=== PATIENT | male | born 1965 | race Caucasian/White ===

== ENCOUNTER 2022-12-24 14:20 | Emergency (ER) | payer BC ==
[2022-12-24] MEDS ORDERED: Lidocaine 1% 5 ML VIAL INJECT ONE (14:47)
[2022-12-24] MEDS ORDERED: Bacitracin Oint 1 GM U/D Packet TOP ONE (14:47)
== END 2022-12-24 15:32 | disposition home or self-care (01) ==
LOC: JP.ED 14:20
DX: S61.241A Puncture wound with foreign body of left index finger without damage to nail, initial encounter (principal); W45.8XXA Other foreign body or object entering through skin, initial encounter
CPT/HCPCS: 64450; 99283